=== PATIENT | female | born 1955 ===

== ENCOUNTER → 2018-03-27 | Day surgery (SDC) | payer OTHER ==
[~2018-03-27] MED LIST: COZAAR100 MG PO; OXYBUTYNIN CHLO10 MG PO; PLAVIX75 MG PO; SYNTHROID75 MCG PO; TOPROL XL25 MG PO; URIN D.S. TABLE1 TAB PO
== END | disposition home or self-care (01) ==
LOC: ADM 03-20 08:30 → CIR.AMB 07:00
DX: M77.12 Lateral epicondylitis, left elbow (principal)